=== PATIENT | female | born 1980 | race Two or more races ===

== ENCOUNTER 2024-01-04 03:11 | Emergency (ER) | payer SELFPAY ==
[2024-01-04] VITALS (8 sets, daily range): BP systolic 100–1148; BP diastolic 59–86; PULSE 84–112; RESP 16–20; TEMP 36.4–37; O2SAT 93–97; BMI 34.7
--- NOTE | 2024-01-04 03:31 | XR_ITS ---
Examination: CT abdomen with intravenous contrast CT pelvis with intravenous contrast 2-D coronal reconstructions 2-D sagittal reconstructions Date and time of exam:January 04, 2024 0705 hrs. Indications: Low back pain with pelvic pressure beginning 2 days ago, lower abdominal pain. CTDI: vol (mGy) 11.3 DLP: (mGycm) 709 Technique: Multiple axial sections of the abdomen and pelvis have been obtained. 64 slice high-resolution scanner used. 3 mm axial sections have been obtained, post intravenous injection 60 cc [id number] 2-D sagittal, coronal reconstructions obtained. Low dose protocols were performed. One or more of the following dose reduction techniques were used; automated exposure control, adjustment of the mA and/or KV according to patient size, use of iterative reconstruction technique. Findings: Opacity left base consistent with pneumonia Hepatomegaly 22 cm No focal liver lesions Absent gallbladder No splenic lesion No pancreatic mass or peripancreatic edema No adrenal mass Moderate renal parenchymal scar formation No renal or ureteral calculi, no hydronephrosis Aorta normal size 9 mm fat-containing umbilical hernia Normal appendix, projecting in the pelvis, coronal images 109 through 113 No bowel obstruction No diverticulitis Anteverted uterus Cystic change in the left ovary, the largest cystic component 24 mm Moderate osteopenia L5-S1 6 mm central lumbar disc bulge Impression: Left base pneumonia Hepatomegaly 22 cm no focal liver lesions Moderate bilateral renal parenchymal scar formation, no hydronephrosis or ureteral calculi Normal appendix, are projecting in the pelvis Cystic change in the left ovary, the largest cystic component 24 mm, recommend pelvic sonography follow-up
--- NOTE | 2024-01-04 03:33 | XR_ITS ---
Examination: CT lumbar spine, without contrast. 2-D sagittal reconstructions. 2-D coronal reconstructions. 3-D reconstructions. Date and time of exam:January 03, 2024 0704 hrs. Indications: Low back pain beginning 2 days ago CTDI: vol (mGy):32.2 DLP: (mGycm):978 Technique: Multiple 1.25 mm axial sections of the lumbar spine without intravenous contrast have been obtained. 2-D sagittal and coronal reconstructions have been obtained. 3-D reconstructions have been obtained. Low dose protocols were performed. One or more of the following dose reduction techniques were used; automated exposure control, adjustment of the mA and/or KV according to patient size, use of iterative reconstruction technique. Findings: Mild osteopenia. Satisfactory alignment lumbar vertebral bodies No lumbar vertebral body compression fracture Lumbar pedicles laminated transverse and posterior spinous processes intact L5-S1 6 mm central lumbar disc bulge extending to the foraminal regions with mild bilateral L5 ganglionic compression L4-L5 no disc protrusion L3-L4 no disc protrusion L2-L3 no disc protrusion L1-L2 no disc protrusion Impression: No lumbar fracture L5-S1 6 mm central lumbar disc bulge extending to the foraminal regions with mild bilateral L5 ganglionic compression Consider MRI lumbar spine without contrast follow-up
[2024-01-04 03:53] LABS: Collection Type, Urine Clean Catch
[2024-01-04] MEDS: ONDANSETRON INJ 2 MG/ML INJ 2 ML 4 MG IV (03:57)
[2024-01-04] MEDS: KETOROLAC INJ 30 MG/ML VIAL IVP (03:57)
[2024-01-04] MEDS: MORPHINE SULF INJ 10 MG/ML VIAL 5 MG IVP (03:57)
[2024-01-04 03:59] LABS: Bilirubin,Urine Negative (Negative); Blood,Urine Negative (Negative); Clarity,Urine Clear (Clear/Hazy); Color,Urine Lt-Yellow (Lt Yel-Yel); Glucose, Urine Negative (Negative); Hyaline Casts,Urine < 1 /hpf (0-1); Ketones,Urine Negative (Negative); Leukocyte Esterase,Urine Positive (Negative); Nitrite,Urine Positive (Negative); Protein,Urine Trace (Neg - Trace); RBC,Urine 4 /hpf (0-3); Specific Gravity,Urine 1.022 (1.001-1.035); Squamous Epithelial Cell,Urine 2 /hpf (0-5); Urobilinogen,Urine Negative mg/dL (0.0-1.0); WBC,Urine 122 /hpf (0-5)
[2024-01-04] MEDS: cefTRIAXone/D5w 1gm IV premix 50 ML IV (04:16)
[2024-01-04 04:24] LABS: Basophils # (Auto) 0.1 Thou/mm3 (0.0-0.2); Basophils % (Auto) 1 % (0-2.5); Eosinophils # (Auto) 0.2 Thou/mm3 (0.0-0.5); Eosinophils % (Auto) 2 % (0-10); Hematocrit 33.1 % (36.0-46.0); Hemoglobin 10.8 g/dL (12.0-16.0); Immature Granulocytes % (Auto) 1 % (0-0); Immature Granulocytes Auto 0.04 Thou/mm3 (0.00-0.00); Lymphocytes # (Auto) 2.3 Thou/mm3 (1.0-4.8); Lymphocytes % (Auto) 26 % (10-50); Mean Corpuscular HGB Conc 32.6 g/dl (31.0-37.0); Mean Corpuscular Volume 86 fL (80-100); Monocytes # (Auto) 0.7 Thou/mm3 (0.0-0.8); Monocytes % (Auto) 8 % (0-12); Neutrophils # (Auto) 5.5 Thou/mm3 (1.8-7.7); Neutrophils % (Auto) 63 % (37-80); Nucleated Red Blood Cell % 0 /100 WBC (0); Platelet Count 275 Thou/mm3 (140-440); RDW Standard Deviation 44.1 fL (36.4-46.3); Red Blood Count 3.86 Miln/mm3 (4.00-5.20); White Blood Count 8.8 Thou/mm3 (3.6-11.0)
[2024-01-04 04:53] LABS: Alanine Aminotransferase 11 U/L (10-49); Albumin, Serum 4.2 gm/dL (3.5-5.0); Albumin/Globulin Ratio 1.5 (1.2-2.2); Alkaline Phosphatase 77 U/L (46-116); Amylase 65 U/L (30-118); Anion Gap 10 (7-16); Aspartate Amino Transferase 14 U/L (0-34); BUN/Creatinine Ratio 17 Ratio (12-20); Bilirubin,Total 0.3 mg/dL (0.3-1.2); Blood Urea Nitrogen 15 mg/dL (9-23); Chloride 105 mMol/L (98-107); Creatinine (Component) 0.9 mg/dL (0.6-1.3); Estimated Creatinine Clearance 94.9 mL/min (>60); Globulin 2.8 gm/dL (2.3-3.5); Glucose 160 mg/dL (74-106); Lipase 66 U/L (12-53); Magnesium 1.7 mg/dL (1.6-2.6); Osmolality,Calculated 273 (275-295); Potassium 4.2 mMol/L (3.4-5.1); Sodium 135 mMol/L (136-145); eGFR > 60 See Note
--- NOTE | 2024-01-04 05:02 | EDNOTE_ITS ---
ED Abdominal Pain RME/HPI General Chief Complaint: Abdominal Pain Stated complaint: LOWER BACK AND ABDOMINAL PAIN Time seen by provider: 01/04/24 03:27 Arrival date/time: 01/04/24 03:11 RME / HPI RME / HPI narrative: This section includes all my notes and documentations, including HPI, PE, and ED course. Ady Pandya MD HPI: 43-year-old female here with several days of worsening low back pain and lower abdominal pain. She has trouble describing the quality and quantity of the pain. Uncertain about exacerbating factors or relieving factors. Has severe nausea, no vomiting. No urinary symptoms. No fever. No other complaints. ROS: Gastrointestinal: negative except as documented in HPI. Genitourinary: negative except as documented in HPI. Musculoskeletal: negative except as documented in HPI. Skin: negative except as documented in HPI. Neurological: negative except as documented in HPI. Physical Exam: General: Alert and oriented. In severe pain. Eyes: Conjunctivae and lids clear. ENT: No nasal congestion. Neck: Supple. Heart: RRR. Lungs: No respiratory distress. Good air movement. No rhonchi, wheezing, rales. Abdomen: Soft with lower abdominal tenderness. Normal bowel sounds. No distension. No rebound or guarding. Back: No CVA tenderness. Skin: Warm and dry. Neuro: Alert and oriented X 3. I ordered diagnostic tests and Zofran and Toradol and morphine. UA remarkable for many WBC with normal squamous epithelial cells, Rocephin ordered for possible UTI. At 6 AM, the care of the patient was transferred to Dr Rizo. Ady Pandya MD Related Data Allergies Allergy/AdvReac Type Severity Reaction Status Date / Time No Known Allergies Allergy Verified 01/04/24 03:12 Course Quality Measures none Orders Category Date Time Status CT Screening NOW Care 01/04/24 03:31 Active Saline [Insert IV] NOW Care 01/04/24 03:[address] abdomen pelvis w con Stat Exams 01/04/24 03:[address] lumbar spine wo con Stat Exams 01/04/24 03:33 Ordered Amylase Stat Lab 01/04/24 04:00 Completed CBC Stat Lab 01/04/24 04:00 Completed CMP [Comprehensive Metabolic Panel] Stat Lab 01/04/24 04:00 Completed HCG Qualitative,Urine Stat Lab 01/04/24 04:00 Ordered Lipase Stat Lab 01/04/24 04:00 Completed Magnesium Stat Lab 01/04/24 04:00 Completed UA [Urinalysis] Stat Lab 01/04/24 03:46 Completed Urine Culture Stat Lab 01/04/24 04:11 Ordered Ketorolac Inj [Toradol Inj] Med 01/04/24 03:30 Discontinued 30 mg IVP X1 ONE Morphine Inj Med 01/04/24 03:30 Discontinued 5 mg IVP X1 ONE Ondansetron Inj [Zofran Inj] Med 01/04/24 03:30 Discontinued 4 mg IV X1 ONE cefTRIAXone/D5w 1gm IV premix [Rocephin/D5w 1gm IV Med 01/04/24 04:11 Discontinued premix] 50 ml IV X1 Vital Signs Vital signs: Vital Signs Temperature 98.6 F 01/04/24 03:24 Pulse Rate 112 H 01/04/24 03:24 Respiratory Rate 19 01/04/24 03:24 Blood Pressure 121/80 01/04/24 03:24 Pulse Oximetry (%) 97 01/04/24 03:24 Oxygen Delivery Method Room Air 01/04/24 03:24 Abdominal Pain MDM Patient data External records reviewed:: None Clinical information provided by:: patient Social determinants that could affect healthcare access:: none Patient has the following chronic illnesses:: None How is presenting disease/condition affected by chronic disease/condition?: no chronic disease Evaluation data The following diagnostics were reviewed and interpreted by me:: other (specify) (Diagnostic tests pending) Lab and/or radiology exams considered but not ordered:: None Interpretation Summary: Diagnostic tests pending Medications / Prescriptions Medications or Prescriptions considered but not ordered:: None Medication administrations:: Medication Administration History Discontinued Medications Ceftriaxone Sodium/Dextrose (Rocephin/D5w 1gm Iv Premix) 50 mls @ 100 mls/hr IV X1 ONE Stop: 01/04/24 04:40 Last Infusion: 01/04/24 05:14 Dose: Infused Documented By: Admin: 01/04/24 04:16 Dose: 100 mls/hr Documented By: CLAYTON Ketorolac Tromethamine (Ketorolac Inj 30 Mg/Ml Vial) 30 mg IVP X1 ONE Stop: 01/04/24 03:31 Last Admin: 01/04/24 03:57 Dose: 30 mg Documented By: CLAYTON Morphine Sulfate (Morphine Sulf Inj 10 Mg/Ml Vial) 5 mg IVP X1 ONE Stop: 01/04/24 03:31 Last Admin: 01/04/24 03:57 Dose: 5 mg Documented By: CLAYTON Ondansetron HCl (Ondansetron Inj 2 Mg/Ml Inj 2 Ml) 4 mg IV X1 ONE; Protocol Stop: 01/04/24 03:31 Last Admin: 01/04/24 03:57 Dose: 4 mg Documented By: CLAYTON Zofran and Toradol and morphine and Rocephin Consultations Consultation(s) initiated? (list below): No Diagnosis Differential diagnosis abdominal pain: acute appendicitis, calculus of kidney, constipation, diverticulitis, endometriosis, gastroenteritis, pancreatitis and small bowel obstruction Most likely diagnosis given after review of the tests above:: Diagnostic tests pending Admission Indicated Admission indicated?: not indicated Admission Request Was there a request for admission?: No Disposition Plan Disposition Plan: other (specify) (Diagnostic tests pending) Discharge Plan Prescriptions/Referrals Referrals: No Primary/Family,Physician [Primary Care Provider] - In 1 week Problem List Clinical Impression: Abdominal pain Patient/Caregiver Discharge Instructions Print Language: Faroese
[2024-01-04 06:31] LABS: HCG Qualitative,Urine Negative
--- NOTE | 2024-01-04 06:48 | PD.EDADDENDU ---
Emergency Room Addendum Addendum Narrative: 0600: Care assumed from Dr. Pandya, the previous shift emergency physician. Past medical, surgical, social and family history reviewed. Vitals and home medications reviewed. I will assume the care of the patient at this time pending CT's, reassessment, and final disposition. Please refer to the emergency department record for history and examination from initial visit.? Nursing notes reviewed by me. Vital signs reviewed by me. [facility] medical records reviewed by me. 43 year old female who is chronically wheelchair bound due to chronic back and bilateral leg pain, does not know why. Patient presented to the ED for 1-2 days of bilateral adnexal pain, L>R. Described as aching, rating as moderate. Accompanied by nausea without vomiting. Denies fevers, chills, sweats, or urinary changes. States her LMP was 12/19/2023 and is pretty regular. On my examination, patient has left adnexal tenderness. Plan to perform pelvic ultrasound to rule out ovarian torsion. 1215: Patient remains clinically stable throughout the emergency department visit. We reviewed all the results, analysis, and treatment plans. Patient is amenable to discharge. Strict return precautions were outlined. Patient was discharged in stable condition. RADIOLOGY Ordering Physician: Ady Pandya MD Date of Service: 01/04/24 Procedure(s): CT abdomen pelvis w con Accession Number(s): [id number] cc: Ady Pandya MD; Cornelius Rodriguez MD; NO PRIMARY/FAMILY,PHYSICIAN~ Examination: CT abdomen with intravenous contrast CT pelvis with intravenous contrast 2-D coronal reconstructions 2-D sagittal reconstructions Date and time of exam:January 04, 2024 0705 hrs. Indications: Low back pain with pelvic pressure beginning 2 days ago, lower abdominal pain. CTDI: vol (mGy) 11.3 DLP: (mGycm) 709 Technique: Multiple axial sections of the abdomen and pelvis have been obtained. 64 slice high-resolution scanner used. 3 mm axial sections have been obtained, post intravenous injection 60 cc [id number] 2-D sagittal, coronal reconstructions obtained. Low dose protocols were performed. One or more of the following dose reduction techniques were used; automated exposure control, adjustment of the mA and/or KV according to patient size, use of iterative reconstruction technique. Findings: Opacity left base consistent with pneumonia Hepatomegaly 22 cm No focal liver lesions Absent gallbladder No splenic lesion No pancreatic mass or peripancreatic edema No adrenal mass Moderate renal parenchymal scar formation No renal or ureteral calculi, no hydronephrosis Aorta normal size 9 mm fat-containing umbilical hernia Normal appendix, projecting in the pelvis, coronal images 109 through 113 No bowel obstruction No diverticulitis Anteverted uterus Cystic change in the left ovary, the largest cystic component 24 mm Moderate osteopenia L5-S1 6 mm central lumbar disc bulge Impression: Left base pneumonia Hepatomegaly 22 cm no focal liver lesions Moderate bilateral renal parenchymal scar formation, no hydronephrosis or ureteral calculi Normal appendix, are projecting in the pelvis Cystic change in the left ovary, the largest cystic component 24 mm, recommend pelvic sonography follow-up Dictated By:Cornelius Rodriguez MD Signed By:<Electronically signed by Cornelius Rodriguez MD in [place]>01/04/24 0750 Ordering Physician: Ady Pandya MD Date of Service: 01/04/24 Procedure(s): CT lumbar spine wo [facility] Accession Number(s): [id number] cc: Ady Panday MD; Cornelius Rodriguez MD; NO PRIMARY/FAMILY,PHYSICIAN~ Examination: CT lumbar spine, without contrast. 2-D sagittal reconstructions. 2-D coronal reconstructions. 3-D reconstructions. Date and time of exam:January 03, 2024 0704 hrs. Indications: Low back pain beginning 2 days ago CTDI: vol (mGy):32.2 DLP: (mGycm):978 Technique: Multiple 1.25 mm axial sections of the lumbar spine without intravenous contrast have been obtained. 2-D sagittal and coronal reconstructions have been obtained. 3-D reconstructions have been obtained. Low dose protocols were performed. One or more of the following dose reduction techniques were used; automated exposure control, adjustment of the mA and/or KV according to patient size, use of iterative reconstruction technique. Findings: Mild osteopenia. Satisfactory alignment lumbar vertebral bodies No lumbar vertebral body compression fracture Lumbar pedicles laminated transverse and posterior spinous processes intact L5-S1 6 mm central lumbar disc bulge extending to the foraminal regions with mild bilateral L5 ganglionic compression L4-L5 no disc protrusion L3-L4 no disc protrusion L2-L3 no disc protrusion L1-L2 no disc protrusion Impression: No lumbar fracture L5-S1 6 mm central lumbar disc bulge extending to the foraminal regions with mild bilateral L5 ganglionic compression Consider MRI lumbar spine without contrast follow-up Dictated By:Cornelius Rodriguez MD Signed By:<Electronically signed by Cornelius Rodriguez MD in [place]>01/04/24 0720 Ordering Physician: Niranjan Rizo MD Date of Service: 01/04/24 Procedure(s): US pelvic complete Accession Number(s): [id number] cc: Niranjan Rizo MD; Cornelius Rodriguez MD; NO PRIMARY/FAMILY,PHYSICIAN~ Examination: Pelvic ultrasound, transabdominal, complete Technique: Transabdominal ultrasound of the pelvis performed using grayscale imaging Date and time of exam: January 04, 2024 1133 hours INDICATIONS: Left adnexal pelvic pain beginning 4 days ago, CT pelvis January 04, 2024 cystic change in the left ovary, the largest cystic component 24 mm. FINDINGS: Uterus 9.0 x 4.6 x 3.7 cm No uterine mass or intrauterine gestation Endometrial stripe 0.9 cm Right ovary 4.7 x 2.2 x 3.2 cm arterial flow Left ovary 3.4 x 3.5 x 2.9 cm arterial flow, 25 x 22 x 19 mm cyst IMPRESSION: Left ovarian simple cyst 25 x 22 x 19 mm Recommend 6 month follow-up pelvic sonography to document stability of mildly prominent right ovary Dictated By:Cornelius Rodriguez MD Signed By:<Electronically signed by Cornelius Rodriguez MD in [place]>01/04/24 1202
--- NOTE | 2024-01-04 07:00 | PC.NURSE ---
Report received at this time from [facility]; per report, pt has been complaining of lower back pain; only PMH is DM and takes metformin. All labs has been sent; pt currently in CT. We will follow-up on CT results. Pt off of unit at this time.
--- NOTE | 2024-01-04 07:05 | PC.NURSE ---
Daughter, Cristal Muñoz, at bedside at this time as a visitor.
--- NOTE | 2024-01-04 08:56 | XR_ITS ---
Examination: Pelvic ultrasound, transabdominal, complete Technique: Transabdominal ultrasound of the pelvis performed using grayscale imaging Date and time of exam: January 04, 2024 1133 hours INDICATIONS: Left adnexal pelvic pain beginning 4 days ago, CT pelvis January 04, 2024 cystic change in the left ovary, the largest cystic component 24 mm. FINDINGS: Uterus 9.0 x 4.6 x 3.7 cm No uterine mass or intrauterine gestation Endometrial stripe 0.9 cm Right ovary 4.7 x 2.2 x 3.2 cm arterial flow Left ovary 3.4 x 3.5 x 2.9 cm arterial flow, 25 x 22 x 19 mm cyst IMPRESSION: Left ovarian simple cyst 25 x 22 x 19 mm Recommend 6 month follow-up pelvic sonography to document stability of mildly prominent right ovary
== END 2024-01-04 13:24 | disposition home or self-care (01) ==
PROVIDERS: Emergency Medicine; Emergency Provider Emergency Medicine
DX: N83.292 Other ovarian cyst, left side (principal); Z99.3 Dependence on wheelchair
CPT/HCPCS: 36415; 72131; 74177; 76856; 80053; 81001; 81025; 82150; 83690; 83735; 85025; 87077; 87086; 87186; 96365; 99285; A4649; J0696; J1885; J2270; J2405; Q9967